=== PATIENT | male | born 1960 | race Caucasian/White ===

== ENCOUNTER 2018-12-27 16:19 | Inpatient (IN) | payer OTHER ==
[2018-12-27 18:15] VITALS: BMI 41.4
--- NOTE | 2018-12-27 19:27 | HP ---
CIWA Score Nausea/Vomitin Muscle Tremors: 3 Anxiety: 2 Agitation: 2 Paroxysmal Sweats: 1-Minimal Palms Moist Orientation: 0-Oriented Tacttile Disturbances: 0-None Auditory Disturbances: 0-None Visual Disturbances: 0-None Headache: 0-None Present CIWA-Ar Total Score: 10 - Admission Criteria OASAS Guidelines: Admission for Medically Managed Detox: Requires at least one of the followin. CIWA greater than 12 2. Seizures within the past 24 hours 3. Delirium tremens within the past 24 hours 4. Hallucinations within the past 24 hours 5. Acute intervention needed for co occurring medical disorder 6. Acute intervention needed for co occurring psychiatric disorder 7. Severe withdrawal that cannot be handled at a lower level of care (continued vomiting, continued diarrhea, abnormal vital signs) requiring intravenous medication and/or fluids 8. Patient presents the following: None of the above Admission Criteria Met: Admission criteria not met Admission ROS [facility] Chief Complaint: Jadiel Maloney is a 58 year old male presenting for alcohol, heroin abuse. Allergies/Adverse Reactions: Allergies Allergy/AdvReac Type Severity Reaction Status Date / Time acetaminophen Allergy Rash Verified 12/27/18 18:26 latex Allergy Swelling Verified 12/27/18 18:26 History of Present Illness: Jadiel Maloney is a 58 year old male presenting for alcohol, heroin abuse. Heroin: 4-6 bags, daily use. Last use was 3 days ago. Has been using for 27 years. Inhalation use. Denies IVDU. Denies history of overdose. Has a Narcan kit and knows how to use it. Is on methadone program through [facility], dose 70mg, last dose was this morning. Alcohol: 1/2 pint daily, last drink was this morning. Daily drinker. States has had seizures (hx of epilepsy). Last seizure was 1 week prior. Has had blackouts. Has had falls with head hits. Withdrawal symptoms: anxiety, tremors, nausea Denies other drug use. Has never been to detox in the past. Plans after detox: unsure. Maybe outpatient program through [facility]. Medical History: Seizures (on medications), HTN, arthritis, hypothyroidism, heart murmur, asthma, Hep C (treated 2013), COPD Surgical History: bilateral TKR, deviated septum repair, appendectomy Psychiatric History: bipolar without psychotic feature Smokin.5ppd Social: lives in apartment, lives alone. Unemployed. Disability. In contact with family, not aware that he is at this facility. Utox: ELLY, MOP, OXY, PTD, BZO JOANN: 0.018 PRACTICE ADVISOR checked and seen that clonazepam 2mg recently filled. Will be admitted due to current intoxication and expected withdrawal symptoms. Will be admitted due to multiple medical comorbidities and missed doses of home medications. Librium protocol. Need to confirm his home medications. Need to confirm methadone dose. Exam Limitations: No Limitations - Ebola screening Have you traveled outside of the country in the last 21 days: No (N) Have you had contact with anyone from an Ebola affected area: No Do you have a fever: No - Review of Systems Constitutional: No Symptoms Reported EENT: reports: No Symptoms Reported Respiratory: reports: No Symptoms reported Cardiac: reports: No Symptoms Reported GI: reports: Nausea : reports: No Symptoms Reported Musculoskeletal: reports: Joint Pain (bilateral knees) Integumentary: reports: No Symptoms Reported Neuro: reports: No Symptoms reported Endocrine: reports: No Symptoms Reported Hematology: reports: No Symptoms Reported Psychiatric: reports: Orientated x3, Anxious Patient History - Patient Medical History Hx Anemia: No Hx Asthma: Yes Hx Chronic Obstructive Pulmonary Disease (COPD): Yes Hx Cancer: No Hx Cardiac Disorders: No (has heart murmur) Hx Congestive Heart Failure: No Hx Hypertension: Yes Hx Hypercholesterolemia: No Hx Pacemaker: No HX Cerebrovascular Accident: No Hx Seizures: Yes (on medications) Hx Dementia: No Hx Diabetes: Yes (borderline, diet controlled) Hx Gastrointestinal Disorders: No Hx Liver Disease: No Hx Genitourinary Disorders: No Hx Sexually Transmitted Disorders: No Hx Renal Disease (ESRD): No Hx Thyroid Disease: Yes (on synthroid) Hx Human Immunodeficiency Virus (HIV): No Hx Hepatitis C: Yes (treated Hep C) Hx Depression: No Hx Suicide Attempt: No Hx Bipolar Disorder: Yes Hx Schizophrenia: No - Patient Surgical History Hx Neurologic Surgery: No Hx Cataract Extraction: No Hx Cardiac Surgery: No Hx Lung Surgery: No Hx Breast Surgery: No Hx Breast Biopsy: No Hx Abdominal Surgery: No Hx Appendectomy: Yes Hx Cholecystectomy: No Hx Genitourinary Surgery: No Hx Section: No Hx Orthopedic Surgery: Yes (bilateral knee replacement) - PPD History PPD to be Administered?: Yes - Smoking Cessation Smoking history: Current every day smoker Have you smoked in the past 12 months: Yes Aproximately how many cigarettes per day: 30 Initiated information on smoking cessation: Yes 'Breaking Loose' booklet given: 12/27/18 - Substance & Tx. History Hx Alcohol Use: Yes Hx Substance Use: Yes Substance Use Type: Alcohol, Heroin - Substances abused Heroin Substance route: Inhalation Frequency: Daily Amount used: 2 bags Age of first use: 19 Date of last use: 12/25/18 Alcohol Substance route: Oral Frequency: 1-3 times last 30 days Amount used: small bottle of Henessy Age of first use: 29 Date of last use: 12/26/18 Other Other (specify): oxycodone Substance route: Oral Frequency: Daily Amount used: 2 pills of 30 mg Age of first use: 51 Date of last use: 12/22/18 Admission Physical Exam BHS - Vital Signs Vital Signs: Vital Signs - 24 hr 12/27/18 17:52 Temperature 97.9 F Pulse Rate 52 L Respiratory 22 H Rate Blood Pressure 186/105 H - Physical General Appearance: Yes: Disheveled, Mild Distress HEENTM: Yes: EOMI, Normal ENT Inspection, MARLEN, Pharynx Normal Respiratory: Yes: Chest Non-Tender, Lungs Clear, Normal Breath Sounds, No Accessory Muscle Use, Expiration (noted long expirations) Neck: Yes: No masses,lesions,Nodules, Trachea in good position Breast: Yes: Breast Exam Deferred Cardiology: Yes: Regular Rhythm, Regular Rate, S1, S2, Systolic Murmur ( ejection murmur noted at R sternal border) Abdominal: Yes: Normal Bowel Sounds, Non Tender, Soft, Other (obese abdomen) Genitourinary: Yes: Within Normal Limits Back: Yes: Normal Inspection Musculoskeletal: Yes: full range of Motion Extremities: Yes: Normal Capillary Refill, Normal Inspection, Pedal Edema ( trace edema), Other (noted post surgical scars on bilateral knees) Neurological: Yes: fence supervisor II-XII NML intact, Fully Oriented, Alert, Motor Strength 5/5 Integumentary: Yes: Normal Color, Dry, Warm - Diagnostic (1) Alcohol abuse Current Visit: Yes Status: Acute (2) Methadone maintenance therapy patient Current Visit: Yes Status: Acute (3) Heroin abuse Current Visit: Yes Status: Acute (4) COPD (chronic obstructive pulmonary disease) Current Visit: Yes Status: Acute (5) Asthma Current Visit: Yes Status: Acute (6) HTN (hypertension) Current Visit: Yes Status: Acute (7) History of knee replacement Current Visit: Yes Status: Acute (8) Epilepsy Current Visit: Yes Status: Acute (9) History of hepatitis C Current Visit: Yes Status: Acute (10) Bipolar disorder Current Visit: Yes Status: Acute (11) Hypothyroid Current Visit: Yes Status: Acute Cleared for Admission S - Detox or Rehab [facility] Level of Care: Medically Managed Detox Regimen/Protocol: Librium Breathalyzer - Breathalyzer Breathalyzer: 0.018 Urine Drug Screen - Test Device Lot number: [id number] Expiration date: 08/19/20 - Control Is test valid?: Yes - Results Drug screen NEGATIVE: No Urine drug screen results: ELLY-Cocaine, MOP-Opiates, OXY-Oxycodone, MTD- Methadone, BZO-Benzodiazepines Inpatient Rehab Admission - Rehab Decision to Admit Inpatient rehab admission?: No
--- NOTE | 2018-12-27 19:37 | PN ---
"Teaching Attending Note Name of Resident: Anthony Torrez ATTENDING PHYSICIAN STATEMENT I saw and evaluated the patient. I reviewed the resident's note and discussed the case with the resident. I agree with the resident's findings and plan as documented. SUBJECTIVE: 58 year old male here requesting alcohol detox Heroin: 4-6 bags via inhalation x 27 years , denies ivdu . Last used 3 days ago. denies OD , Has a Narcan kit and knows how to use it. In methadone program [facility], dose 70mg, last dose was this morning, report s started using heroin for pain after entering [facility] , prior was using Oxycodone rx , denies abuse of rx meds . Alcohol: 1/2 pint daily, last drink was this mornin, h/o seizures , latest 1 week ago , + blackouts , falls while intoxicated Medical History: Seizure d/o , HTN, arthritis, hypothyroidism, heart murmur, asthma, Hep C (treated 2013), Surgical History: bilateral TKR, deviated septum repair, appendectomy Psychiatric History: bipolar without psychotic feature tobacco : 2.5 ppd Social: lives in apartment, lives alone. Unemployed, on disability, his family is not aware that he is at this facility. OBJECTIVE: Search Terms: jadiel maloney, 1960 Search Date: 12/27/2018 07:36:19 PM This report was requested by: Fely Sykes | Reference #: [id number] Others' Prescriptions Patient Name: Jadiel Maloney Date: 1960 Address: [address] [place] [address] [id number] [id number] Sex: Male Rx Written Rx Dispensed Drug Quantity Days Supply Prescriber Name 11/28/2018 12/02/2018 clonazepam 2 mg tablet 120 30 Kathie Gore MD 11/01/2018 11/03/2018 clonazepam 2 mg tablet 120 30 Kathie Gore MD 10/05/2018 10/05/2018 clonazepam 2 mg tablet 120 30 Kathie Gore MD 09/07/2018 09/07/2018 clonazepam 2 mg tablet 120 30 Kathie Gore MD 08/09/2018 08/10/2018 clonazepam 2 mg tablet 120 30 Kathie Gore MD 08/03/2018 08/03/2018 oxycodone hcl 5 mg tablet 20 4 Emmanuel Washburn MD 07/20/2018 07/25/2018 oxycodone hcl 5 mg tablet 30 5 Minor Kelly MD 07/13/2018 07/13/2018 clonazepam 2 mg tablet 120 30 Kathie Gore MD 06/15/2018 06/15/2018 clonazepam 2 mg tablet 120 30 LovKtahie almazan MD 05/17/2018 05/19/2018 clonazepam 2 mg tablet 120 30 IsabelaingsKathie MD 04/21/2018 04/21/2018 clonazepam 2 mg tablet 120 30 LovingsKathie MD 03/24/2018 03/24/2018 clonazepam 2 mg tablet 120 30 LovingsKathie MD 02/22/2018 02/24/2018 clonazepam 2 mg tablet 120 30 Kathie Gore MD 01/27/2018 01/27/2018 clonazepam 2 mg tablet 120 30 Kathie Gore MD Patient Name: Jadiel Maloney Date: 1960 Address: [address] [place] [address] [place] [address] Sex: Male Rx Written Rx Dispensed Drug Quantity Days Supply Prescriber Name 07/22/2018 07/22/2018 methadone hcl 10 mg tablet 12 2 Minor Kelly MD ASSESSMENT AND PLAN: Alcohol dependence - Librium detox Opioid dependence on agonist therapy . Nicotine dependence - smoking cessation counselling."
[2018-12-27] MEDS ORDERED: hydrOXYzine PAMOATE 25 MG CAPSULE (FP) PO PRN (19:50)
[2018-12-27] MEDS ORDERED: MAGNESIUM CITRATE 300 ML BOTTLE PO PRN (19:50)
[2018-12-27] MEDS ORDERED: chlordiazePOXIDE HCL 25 MG CAPSULE PO PRN (19:50)
[2018-12-27] MEDS ORDERED: BISMUTH SUBSALICYLATE 524 MG/30 ML UD PO PRN (19:50)
[2018-12-27] MEDS ORDERED: MAGNESIUM HYDROX 2400MG/30ML ORAL SUSPENSION 30 ML CUP PO PRN (19:50)
[2018-12-27] MEDS ORDERED: MAG HYDROX/AL HYDROX/SIMETH 30 ML UNIT-DOSE CUP PO PRN (19:50)
[2018-12-27] MEDS ORDERED: MENTHOL/PHENOL 1 EACH UD MM PRN (19:50)
[2018-12-27] MEDS ORDERED: IBUPROFEN 400 MG TABLET (FP) PO PRN ×2 (19:50)
[2018-12-27] MEDS ORDERED: PNEUMOC 13-VAL CONJ-DIP CRM/PF 0.5 ML DISP.SYRIN IM ONE (20:14)
[2018-12-27] MEDS ORDERED: FLU VACCINE QUAD 60 MCG/0.5 ML (MDV 19-20) IM ONE (20:14)
[2018-12-27] MEDS ORDERED: MELATONIN 5 MG TABLETS PO PRN (22:00)
[2018-12-27] MEDS: MONTELUKAST NA 10 MG TABLET PO SCH (23:12)
[2018-12-27] MEDS: carBAMazepine 200 MG TABLET PO SCH (23:12)
[2018-12-27] MEDS: THIAMINE HCL 100 MG TABLET (FP) PO SCH (23:12)
[2018-12-27] MEDS: chlordiazePOXIDE HCL 25 MG CAPSULE PO SCH (23:13)
[2018-12-28] MEDS: chlordiazePOXIDE HCL 25 MG CAPSULE PO SCH ×4 (05:59→23:47)
[2018-12-28] MEDS ORDERED: LEVOTHYROXINE NA 50 MCG TABLET (FP) PO SCH (07:00)
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
[2018-12-28] MEDS: PRENATAL VITAMINS W/ FOLIC ACID TABLET (FP) PO SCH (10:20)
[2018-12-28] MEDS: amLODIPine BESYLATE 5 MG TABLET (FP) PO SCH (10:20)
[2018-12-28] MEDS: NICOTINE 21 MG/24 HOURS TOPICAL PATCH TD SCH (10:20)
[2018-12-28] MEDS: ASPIRIN 81 MG CHEWABLE TABLETS PO SCH (10:20)
[2018-12-28] MEDS ORDERED: METHADONE HCL 10 MG TABLET PO ONE (11:33)
[2018-12-28 11:59] LABS: HEMATOCRIT 38.1 % (35.4-49); HEMOGLOBIN 12.3 GM/dL (11.7-16.9); MCH 28.2 pg (25.7-33.7); MCHC 32.2 g/dl (32.0-35.9); MEAN CELL VOLUME 87.5 fl (80-96); MEAN PLT VOLUME 9.9 fl (7.5-11.1); PLATELET COUNT 164 K/MM3 (134-434); RBC 4.36 M/mm3 (4.00-5.60); RDW 15.8 % (11.9-15.9); WHITE BLOOD COUNT 7.7 K/mm3 (4.0-10.0)
[2018-12-28] MEDS ORDERED: METHADONE 40 MG, METHADONE 30 MG PO ONE (12:00)
[2018-12-28] MEDS: carBAMazepine 200 MG TABLET PO SCH ×2 (12:17→23:47)
[2018-12-28 12:18] LABS: ALBUMIN 3.6 g/dl (3.4-5.0); BILIRUBIN,TOTAL 0.3 mg/dL (0.2-1); BLOOD UREA NITROGEN 15.2 mg/dL (7-18); CALCIUM 8.3 mg/dL (8.5-10.1); POTASSIUM 4.5 mmol/L (3.5-5.1); TOT PROT 7.5 g/dl (6.4-8.2)
[2018-12-28 12:25] LABS: SICKLE CELL SCREEN NEGATIVE (NEGATIVE)
--- NOTE | 2018-12-28 13:46 | PN ---
S CIWA - CIWA Score Nausea/Vomitin-No Nausea/No Vomiting Muscle Tremors: 3 Anxiety: 2 Agitation: 4-Moderately Restless Paroxysmal Sweats: 3 Orientation: 0-Oriented Tacttile Disturbances: 0-None Auditory Disturbances: 0-None Visual Disturbances: 0-None Headache: 0-None Present CIWA-Ar Total Score: 12 BHS Progress Note (SOAP) Subjective: irritable agitation sweats body aches restless Objective: 12/28/18 13:45 Vital Signs Temperature 98.1 F 12/28/18 13:11 Pulse Rate 48 L 12/28/18 13:11 Respiratory Rate 18 12/28/18 13:11 Blood Pressure 157/89 12/28/18 13:11 O2 Sat by Pulse Oximetry (%) Laboratory Tests 12/28/18 12/28/18 12/28/18 05:57 08:45 08:45 WBC 7.7 RBC 4.36 Hgb 12.3 Hct 38.1 MCV 87.5 MCH 28.2 MCHC 32.2 RDW 15.8 Plt Count 164 MPV 9.9 Sickle Cell Screen Negative Sodium 139 Potassium 4.5 Chloride 101 Carbon Dioxide 33 H Anion Gap 4 L BUN 15.2 Creatinine 1.0 Est GFR (CKD-EPI)AfAm 97.08 Est GFR (CKD-EPI)NonAf 83.76 POC Glucometer 102 Random Glucose 107 H Calcium 8.3 L Total Bilirubin 0.3 AST 22 ALT 27 Alkaline Phosphatase 128 H Total Protein 7.5 Albumin 3.6 TSH 0.82 labs noted aaox3 ambulating no acute distress Assessment: 12/28/18 13:46 withdrawals Plan: continue detox increase fluids
[2018-12-28] MEDS ORDERED: METHADONE HCL 40 MG DISPERSABLE TABLET ONE (14:11)
[2018-12-28] MEDS ORDERED: METHADONE HCL 10 MG TABLET ONE (14:11)
[2018-12-28] MEDS: MONTELUKAST NA 10 MG TABLET PO SCH (23:47)
[2018-12-28] MEDS: THIAMINE HCL 100 MG TABLET (FP) PO SCH (23:47)
[2018-12-29] MEDS ORDERED: METHADONE HCL 10 MG TABLET ONE (05:25)
[2018-12-29] MEDS ORDERED: METHADONE HCL 40 MG DISPERSABLE TABLET ONE (05:26)
[2018-12-29] MEDS ORDERED: METHADONE HCL 40 MG DISPERSABLE TABLET PO SCH (06:00)
[2018-12-29] MEDS: METHADONE 40 MG, METHADONE 30 MG PO SCH (06:04)
[2018-12-29] MEDS: chlordiazePOXIDE HCL 25 MG CAPSULE PO SCH ×4 (06:05→23:04)
[2018-12-29] MEDS: LEVOTHYROXINE NA 25 MCG TABLET (FP) PO SCH (06:08)
[2018-12-29] MEDS: NICOTINE 21 MG/24 HOURS TOPICAL PATCH TD SCH (10:07)
[2018-12-29] MEDS: PRENATAL VITAMINS W/ FOLIC ACID TABLET (FP) PO SCH (10:07)
[2018-12-29] MEDS: carBAMazepine 200 MG TABLET PO SCH ×2 (10:07→23:04)
[2018-12-29] MEDS: ASPIRIN 81 MG CHEWABLE TABLETS PO SCH (10:07)
[2018-12-29] MEDS: amLODIPine BESYLATE 5 MG TABLET (FP) PO SCH (10:07)
[2018-12-29] MEDS ORDERED: FLU VACCINE QUAD 60 MCG/0.5 ML (MDV 19-20) IM ONE (12:00)
[2018-12-29] MEDS ORDERED: PNEUMOCOCCAL 23 VACCINE 0.5 ML VIAL IM ONE (12:00)
--- NOTE | 2018-12-29 12:39 | PN ---
S CIWA - CIWA Score Nausea/Vomitin-No Nausea/No Vomiting Muscle Tremors: 3 Anxiety: 2 Agitation: 2 Paroxysmal Sweats: 2 Orientation: 0-Oriented Tacttile Disturbances: 0-None Auditory Disturbances: 0-None Visual Disturbances: 0-None Headache: 0-None Present CIWA-Ar Total Score: 9 BHS Progress Note (SOAP) Subjective: sweats shakes interrupted sleep Objective: 12/29/18 12:38 Vital Signs Temperature 97.1 F L 12/29/18 09:48 Pulse Rate 54 L 12/29/18 09:48 Respiratory Rate 18 12/29/18 09:48 Blood Pressure 133/71 12/29/18 09:48 O2 Sat by Pulse Oximetry (%) Laboratory Tests 12/28/18 12/28/18 12/28/18 05:57 08:45 08:45 WBC 7.7 RBC 4.36 Hgb 12.3 Hct 38.1 MCV 87.5 MCH 28.2 MCHC 32.2 RDW 15.8 Plt Count 164 MPV 9.9 Sickle Cell Screen Negative Sodium 139 Potassium 4.5 Chloride 101 Carbon Dioxide 33 H Anion Gap 4 L BUN 15.2 Creatinine 1.0 Est GFR (CKD-EPI)AfAm 97.08 Est GFR (CKD-EPI)NonAf 83.76 POC Glucometer 102 Random Glucose 107 H Calcium 8.3 L Total Bilirubin 0.3 AST 22 ALT 27 Alkaline Phosphatase 128 H Total Protein 7.5 Albumin 3.6 TSH 0.82 RPR Titer 12/28/18 08:45 WBC RBC Hgb Hct MCV MCH MCHC RDW Plt Count MPV Sickle Cell Screen Sodium Potassium Chloride Carbon Dioxide Anion Gap BUN Creatinine Est GFR (CKD-EPI)AfAm Est GFR (CKD-EPI)NonAf POC Glucometer Random Glucose Calcium Total Bilirubin AST ALT Alkaline Phosphatase Total Protein Albumin TSH RPR Titer Nonreactive labs noted aaox3 ambulating no acute distress Assessment: 12/29/18 12:38 withdrawal sx Plan: continue detox increase fluids
[2018-12-29] MEDS: MONTELUKAST NA 10 MG TABLET PO SCH (23:04)
[2018-12-29] MEDS: THIAMINE HCL 100 MG TABLET (FP) PO SCH (23:04)
[2018-12-30] MEDS ORDERED: chlordiazePOXIDE HCL 10 MG CAPSULE PO PRN
[2018-12-30] MEDS ORDERED: chlordiazePOXIDE HCL 10 MG CAPSULE PO SCH (05:00)
[2018-12-30] MEDS ORDERED: METHADONE HCL 40 MG DISPERSABLE TABLET ONE (05:02)
[2018-12-30] MEDS ORDERED: METHADONE HCL 10 MG TABLET ONE (05:02)
[2018-12-30] MEDS: METHADONE 40 MG, METHADONE 30 MG PO SCH (05:49)
[2018-12-30 06:29] VITALS: BP 137/93; PULSE 53; TEMP 97.9
[2018-12-30] MEDS: LEVOTHYROXINE NA 25 MCG TABLET (FP) PO SCH (08:19)
--- NOTE | 2018-12-30 09:22 | DS ---
[facility] Detox Discharge Summary Admission Date: 12/27/18 Discharge Date: 12/30/18 - History Present History: Alcohol Dependence, Sedative Dependence, [facility] - Physical Exam Results Vital Signs: Vital Signs Temperature 97.9 F 12/30/18 06:00 Pulse Rate 53 L 12/30/18 06:00 Respiratory Rate 20 12/30/18 06:00 Blood Pressure 137/93 12/30/18 06:00 O2 Sat by Pulse Oximetry (%) Pertinent Admission Physical Exam Findings: pt admitted in withdrawals Laboratory Tests 12/28/18 12/28/18 12/28/18 05:57 08:45 08:45 WBC 7.7 RBC 4.36 Hgb 12.3 Hct 38.1 MCV 87.5 MCH 28.2 MCHC 32.2 RDW 15.8 Plt Count 164 MPV 9.9 Sickle Cell Screen Negative Sodium 139 Potassium 4.5 Chloride 101 Carbon Dioxide 33 H Anion Gap 4 L BUN 15.2 Creatinine 1.0 Est GFR (CKD-EPI)AfAm 97.08 Est GFR (CKD-EPI)NonAf 83.76 POC Glucometer 102 Random Glucose 107 H Calcium 8.3 L Total Bilirubin 0.3 AST 22 ALT 27 Alkaline Phosphatase 128 H Total Protein 7.5 Albumin 3.6 TSH 0.82 RPR Titer 12/28/18 08:45 WBC RBC Hgb Hct MCV MCH MCHC RDW Plt Count MPV Sickle Cell Screen Sodium Potassium Chloride Carbon Dioxide Anion Gap BUN Creatinine Est GFR (CKD-EPI)AfAm Est GFR (CKD-EPI)NonAf POC Glucometer Random Glucose Calcium Total Bilirubin AST ALT Alkaline Phosphatase Total Protein Albumin TSH RPR Titer Nonreactive today pt is aaox3 ambulating no acute distress no s/s of withdrawals - Treatment Hospital Course: Detox Protocol Followed, Detoxed Safely, Responded well, Discharged Condition Good, Rehab Referral Accepted - Medication Discharge Medications: Ambulatory Orders Amlodipine Besylate 10 mg PO DAILY 12/27/18 Aspirin 81 mg PO DAILY 12/27/18 Atorvastatin Calcium [Lipitor] 10 mg PO DAILY 12/27/18 Carbamazepine 600 mg PO HS 12/27/18 Carbamazepine [Tegretol -] 400 mg PO DAILY 12/27/18 Chlorthalidone 50 mg PO DAILY 12/27/18 Cholecalciferol (Vitamin D3) [Vitamin D] 2,000 unit PO DAILY 12/27/18 Clonazepam [Klonopin] 2 mg PO TID 12/27/18 Duloxetine HCl [Cymbalta] 60 mg PO DAILY 12/27/18 Levothyroxine [Synthroid -] 60 mcg PO DAILY 12/27/18 Lisinopril [Prinivil -] 40 mg PO DAILY 12/27/18 Metformin HCl [Glucophage] 500 mg PO BID 12/27/18 Montelukast Sodium [Singulair] 10 mg PO HS 12/27/18 - Diagnosis (1) Bipolar disorder Current Visit: Yes Status: Acute (2) History of hepatitis C Current Visit: Yes Status: Acute (3) Methadone maintenance therapy patient Current Visit: Yes Status: Chronic (4) Substance induced mood disorder Current Visit: Yes Status: Acute (5) Uncomplicated alcohol dependence Current Visit: Yes Status: Acute (6) Asthma Current Visit: Yes Status: Chronic (7) Bipolar II disorder Current Visit: Yes Status: Chronic (8) COPD (chronic obstructive pulmonary disease) Current Visit: Yes Status: Chronic (9) Epilepsy Current Visit: Yes Status: Chronic (10) HTN (hypertension) Current Visit: Yes Status: Chronic (11) Hypothyroid Current Visit: Yes Status: Chronic (12) Nicotine dependence Current Visit: Yes Status: Chronic (13) Opioid dependence on agonist therapy Current Visit: Yes Status: Chronic (14) History of knee replacement Current Visit: Yes Status: Resolved (15) MDD (major depressive disorder) Current Visit: Yes Status: Ruled-out - AMA Did Patient Leave Against Medical Advice: No
[2018-12-31] MEDS ORDERED: chlordiazePOXIDE HCL 10 MG CAPSULE PO SCH (05:00)
[2019-01-01] MEDS ORDERED: chlordiazePOXIDE HCL 10 MG CAPSULE PO ONE (05:00)
== END 2018-12-30 09:32 | disposition home or self-care (01) | DRG 773 ==
LOC: YASAS 16:19 → Y3N 20:19 → Y6N 20:27
PROVIDERS: ADMIT Allergy & Immunology; ATTEND Allergy & Immunology
PROC: HZ2ZZZZ Detoxification Services for Substance Abuse Treatment (ICD-10-PCS; principal; 2018-12-27)
DX: F10.230 Alcohol dependence with withdrawal, uncomplicated (principal); F11.20 Opioid dependence, uncomplicated; F17.210 Nicotine dependence, cigarettes, uncomplicated; F31.81 Bipolar II disorder; F31.9 Bipolar disorder, unspecified; F19.24 Other psychoactive substance dependence with psychoactive substance-induced mood disorder; G40.909 Epilepsy, unspecified, not intractable, without status epilepticus; E03.9 Hypothyroidism, unspecified; I10 Essential (primary) hypertension; J44.9 Chronic obstructive pulmonary disease, unspecified; J45.998 Other asthma; B18.2 Chronic viral hepatitis C; M12.9 Arthropathy, unspecified; R01.1 Cardiac murmur, unspecified; Z96.653 Presence of artificial knee joint, bilateral; Z88.6 Allergy status to analgesic agent; Z91.040 Latex allergy status
CPT/HCPCS: 36415; 80053; 82962; 84443; 85027; 85660; 86593; 90732; G0009; Q2036